=== PATIENT | male | born 1960 | race Asian ===

== ENCOUNTER 2021-08-18 09:33 | Emergency (ER) | payer MEDICAID, OTHER ==
[~2021-08-18] VITALS: Ht 152.4 cm; Wt 54.5 kg
[2021-08-18 09:35] VITALS: BP 101/63
[2021-08-18] MEDS ORDERED: diabetes med PO (09:38)
[2021-08-18] MEDS ORDERED: TACR0.5C21 PO (09:38)
[2021-08-18] MEDS ORDERED: APIX5TAB PO (09:38)
[2021-08-18] MEDS ORDERED: PHOSLOC PO (09:38)
[2021-08-18] MEDS ORDERED: METO-558 PO (09:38)
[2021-08-18] MEDS ORDERED: NIFE10 PO (09:38)
[2021-08-18] MEDS ORDERED: PRED-549 PO (09:38)
== END 2021-08-18 10:30 | disposition home or self-care (01) ==
LOC: EMS 09:37
DX: S01.01XD Laceration without foreign body of scalp, subsequent encounter (principal); Z48.02 Encounter for removal of sutures; Z79.899 Other long term (current) drug therapy; I10 Essential (primary) hypertension; E11.9 Type 2 diabetes mellitus without complications; X58.XXXD Exposure to other specified factors, subsequent encounter
CPT/HCPCS: 82962; 99282

== ENCOUNTER 2021-11-12 23:37 | Emergency (ER) | payer MEDICAID ==
[~2021-11-12] VITALS: Ht 147.3 cm; Wt 52.0 kg
[~2021-11-12 23:37] MED LIST: APIX5TAB PO; METO-558 PO; NIFE10CA50 PO; PHOSLOC PO; PRED-549 PO; TACR0.5C21 PO; diabetes med PO
[2021-11-13] MEDS ORDERED: GELATIN SPONGE,ABSORBABLE 12-7 MM TP ONE
[2021-11-13] MEDS ORDERED: SODIUM CHLORIDE 0.9% 250 ML IRRIG SOLUTION BOTTLE IRRIG ONE
[2021-11-13] MEDS ORDERED: CEPH-558 PO (02:57)
[2021-11-13 03:01] VITALS: BP 180/90
== END 2021-11-13 03:03 | disposition home or self-care (01) ==
LOC: EMS 23:37
DX: S61.217A Laceration without foreign body of left little finger without damage to nail, initial encounter (principal); E11.9 Type 2 diabetes mellitus without complications; I10 Essential (primary) hypertension; Z87.448 Personal history of other diseases of urinary system; Z94.0 Kidney transplant status; W27.8XXA Contact with other nonpowered hand tool, initial encounter; Y93.89 Activity, other specified; Y92.89 Other specified places as the place of occurrence of the external cause; Y99.8 Other external cause status
CPT/HCPCS: 99283

== ENCOUNTER 2023-03-28 04:32 | Inpatient (IN) | payer MEDICAID ==
[~2023-03-28] VITALS: Ht 147.3 cm; Wt 44.8 kg
[2023-03-28] VITALS (14 sets, daily range): BP systolic 128–187; BP diastolic 79–113; PULSE 52–73; RESP 18–24; TEMP 97.6–97.7; O2SAT 96–99
[~2023-03-28 04:32] MED LIST changes: +APIX2.5T PO; -APIX5TAB PO; +ATOR20TA65 PO; +CINA30 PO; -METO-558 PO; +METO25XL PO; -NIFE10CA50 PO; +PANT-31 PO; +SEVE800T38 PO; -TACR0.5C21 PO; +TACR1CAP12 PO
[2023-03-28 04:47] LABS: BASOPHILS % (AUTO) 0.9 % (0.0-2.0); EOSINOPHILS % (AUTO) 5.8 % (1.0-6.0); HEMATOCRIT 38.4 % (41-53); HEMOGLOBIN 12.6 g/dL (13.5-17.5); LYMPHOCYTES % (AUTO) 15.5 % (22.0-44.0); MEAN CORPUSCULAR HEMOGLOBIN 29.7 pg (26.0-34.0); MEAN CORPUSCULAR HGB CONC 32.9 G/dL (31.0-37.0); MEAN CORPUSCULAR VOLUME 90 fL (80-100); MONOCYTES # (AUTO) 0.3 K/uL (0.1-1.0); MONOCYTES % (AUTO) 5.2 % (2.0-9.0); NEUTROPHILS # (AUTO) 4.9 K/uL (1.8-7.7); NEUTROPHILS % (AUTO) 72.6 % (40.0-70.0); PLATELET COUNT (AUTO) 180 K/uL (150-450); RED BLOOD CELL COUNT(AUTO) 4.25 MIL/uL (4.50-5.90); RED CELL DISTRIBUTION WIDTH 18.4 % (11.5-14.5); WHITE BLOOD COUNT (AUTO) 6.7 K/uL (4.5-11.0)
[2023-03-28 04:56] LABS: CALCIUM, TOTAL 8.7 mg/dL (8.8-10.5); CREATININE 9.22 mg/dL (0.60-1.30); POTASSIUM 5.3 mmol/L (3.5-5.1)
[2023-03-28 05:04] LABS: ALBUMIN 3.5 g/dL (3.4-5.0); BILIRUBIN,TOTAL 0.4 mg/dL (0.1-1.0)
[2023-03-28 05:06] LABS: TROPONIN I-HIGH SENSITIVITY 112 ng/L (<76)
[2023-03-28] MEDS ORDERED: ONDANSETRON HCL 4 MG/2 ML VIAL IVP PRN ×2 (05:15→17:30)
[2023-03-28] MEDS ORDERED: 0.9% SODIUM CHLORIDE 10 ML SYRINGE IVP PRN (05:15)
[2023-03-28] MEDS ORDERED: ACETAMINOPHEN 325 MG TABLET PO PRN ×2 (05:15→17:30)
[2023-03-28 05:20] LABS: APPEARANCE,URINE HAZY (CLEAR); BILIRUBIN,URINE NEGATIVE (NEGATIVE); COLOR,URINE LIGHT YELLOW (YELLOW); GLUCOSE, URINE (UA) NEGATIVE (NEGATIVE); KETONES,URINE NEGATIVE (NEGATIVE); LEUKOCYTE ESTERASE ,URINE MODERATE (NEGATIVE); NITRATE,URINE NEGATIVE (NEGATIVE); OCCULT BLOOD,URINE SMALL (NEGATIVE); PH,URINE 8.5 (5.0-8.0); PROTEIN,URINE 300-600,SEE CONFIRM mg/dL (NEGATIVE); SPECIFIC GRAVITIY, URINE 1.009 (1.003-1.030); UROBILINOGEN,URINE <=1.0 mg/dL (<=1.0)
[2023-03-28 05:26] LABS: INFLUENZA A-RTPCR,COMBO NEGATIVE FOR FLU A (NEGATIVE); INFLUENZA B-RTPCR,COMBO NEGATIVE FOR FLU B (NEGATIVE); RESPIRATORY SYNCYTIAL VRS-PCR NEGATIVE (NEGATIVE); SARS COVID19 RTPCR, COMBO NEGATIVE (NEGATIVE)
[2023-03-28 05:26] LABS: SULFOSALICYLIC ACID,URINE 3+ (Negative)
[2023-03-28 05:27] LABS: BACTERIA,URINE Many /HPF (None Seen); RBC,URINE 0-2 /HPF (0-2); SQUAMOUS EPITHELIAL CELL,UR None Seen /LPF (None Seen)
[2023-03-28 05:30] LABS: TRIPLE PHOSPHATE CRYSTAL,UR Few /LPF (None Seen)
[2023-03-28] MEDS ORDERED: FUROSEMIDE 40 MG/4 ML VIAL IVP ONE (05:30)
[2023-03-28 12:16] LABS: GLUCOMETER DEV NAME(LOC) ER.6; GLUCOSE,POINT OF CARE 79 MG/DL (70-110)
[2023-03-28] MEDS ORDERED: SODIUM CHLORIDE 0.9% 2,000 ML ONE (14:21)
[2023-03-28] MEDS ORDERED: MAGNESIUM HYDROXIDE SUSPENSION 30 ML UDCUP PO PRN (17:30)
[2023-03-28] MEDS ORDERED: ALBUTEROL SULFATE 2.5 MG/0.5 ML NEB SOLUTION NEB PRN (17:30)
[2023-03-28] MEDS ORDERED: HYDROCODONE/ACETAMINOPHEN 5-325 MG TABLET PO PRN (17:30)
[2023-03-28] MEDS ORDERED: BISACODYL 10 MG RECTAL RECTAL SUPPOSITORY PR PRN (17:30)
[2023-03-28] MEDS ORDERED: ZOLPIDEM TARTRATE 5 MG TABLET PO PRN (17:30)
[2023-03-28] MEDS ORDERED: MORPHINE SULFATE 2 MG/ML SYRINGE IVP PRN (17:30)
[2023-03-28] MEDS ORDERED: IPRATROPIUM BROMIDE 0.5 MG/2.5 ML NEB SOLUTION NEB PRN (17:30)
[2023-03-28] MEDS ORDERED: METO50 PO (17:33)
[2023-03-28] MEDS ORDERED: LANT500T3 PO (17:33)
[2023-03-28] MEDS ORDERED: TRAZ-252 PO (17:33)
[2023-03-28] MEDS ORDERED: NIFE-78 PO (17:33)
[2023-03-28] MEDS ORDERED: SERT-438 PO (17:33)
[2023-03-28] MEDS ORDERED: OMEP20CA12 PO (17:33)
[2023-03-28] MEDS ORDERED: CefTRIAXone 1 GM/DEXTROSE 50 ML IV SCH (18:00)
[2023-03-28] MEDS: SEVELAMER CARBONATE 800 MG TABLET PO SCH (18:50)
[2023-03-28] MEDS ORDERED: PNEUMOCOCCAL VACCINE POLYVALENT 0.5 ML SYRINGE [PPSV23] IM. ONE (19:00)
[2023-03-28] MEDS: APIXABAN 2.5 MG TABLET PO SCH (20:16)
[2023-03-28] MEDS: TACROLIMUS 1 MG CAPSULE PO SCH (20:16)
[2023-03-28] MEDS: DOCUSATE SODIUM 100 MG CAPSULE PO SCH (20:23)
[2023-03-28 21:12] LABS: GLUCOMETER DEV NAME(LOC) 5N.2C; GLUCOSE,POINT OF CARE 142 MG/DL (70-110)
[2023-03-29] VITALS: BP 144/76; PULSE 59; RESP 20; TEMP 97.6
[2023-03-29] MEDS: HEPARIN SODIUM,PORCINE 5,000 UNITS/ML VIAL SQ SCH ×2 (00:37→08:00)
[2023-03-29 04:00] VITALS: BP 157/83; PULSE 61; RESP 24; TEMP 98.4
[2023-03-29 07:48] VITALS: BP 153/81; PULSE 63; RESP 22; TEMP 98
[2023-03-29] MEDS ORDERED: CINACALCET HCL 30 MG TABLET PO SCH (08:00)
[2023-03-29] MEDS: SEVELAMER CARBONATE 800 MG TABLET PO SCH (08:00)
[2023-03-29] MEDS ORDERED: CALCIUM ACETATE 667 MG CAPSULE PO SCH (08:00)
[2023-03-29] MEDS: DOCUSATE SODIUM 100 MG CAPSULE PO SCH (08:56)
[2023-03-29] MEDS: TACROLIMUS 1 MG CAPSULE PO SCH (08:56)
[2023-03-29] MEDS: APIXABAN 2.5 MG TABLET PO SCH (08:56)
[2023-03-29] MEDS ORDERED: ATORVASTATIN CALCIUM 20 MG TABLET PO SCH (09:00)
[2023-03-29] MEDS ORDERED: METOPROLOL SUCCINATE 25 MG ER TABLET PO SCH (09:00)
[2023-03-29] MEDS ORDERED: PredniSONE 5 MG TABLET PO SCH (09:00)
[2023-03-29] MEDS ORDERED: PANTOPRAZOLE SODIUM 40 MG DR TABLET PO SCH (09:00)
[2023-03-29] MEDS ORDERED: ATOR20TA PO (09:45)
[2023-03-29] MEDS ORDERED: PRED-549 PO (09:45)
[2023-03-29] MEDS ORDERED: APIX2.5T PO (09:46)
[2023-03-29] MEDS ORDERED: METO50 PO (09:46)
[2023-03-29] MEDS ORDERED: NIFE-141 PO (09:46)
[2023-03-29] MEDS ORDERED: CINA30 PO (09:46)
[2023-03-29] MEDS ORDERED: TACR1CAP12 PO (09:47)
[2023-03-29] MEDS ORDERED: FURO40 PO (09:47)
== END 2023-03-29 10:15 | disposition home or self-care (01) | DRG 133 ==
LOC: EMS 04:32 → 5S 05:16
PROVIDERS: ADMIT Hospitalist; ATTEND Hospitalist
PROC: 5A09357 Assistance with Respiratory Ventilation, Less than 24 Consecutive Hours, Continuous Positive Airway Pressure (ICD-10-PCS; principal; 2023-03-28)
PROC: 5A1D70Z Performance of Urinary Filtration, Intermittent, Less than 6 Hours Per Day (ICD-10-PCS; 2023-03-28)
DX: J96.00 Acute respiratory failure, unspecified whether with hypoxia or hypercapnia (principal); I13.2 Hypertensive heart and chronic kidney disease with heart failure and with stage 5 chronic kidney disease, or end stage renal disease; E11.22 Type 2 diabetes mellitus with diabetic chronic kidney disease; E78.00 Pure hypercholesterolemia, unspecified; I25.10 Atherosclerotic heart disease of native coronary artery without angina pectoris; Z20.822 Contact with and (suspected) exposure to COVID-19; K21.9 Gastro-esophageal reflux disease without esophagitis; I49.9 Cardiac arrhythmia, unspecified; I16.1 Hypertensive emergency; Z79.899 Other long term (current) drug therapy; N39.0 Urinary tract infection, site not specified; Z82.49 Family history of ischemic heart disease and other diseases of the circulatory system; Z83.3 Family history of diabetes mellitus; Z91.041 Radiographic dye allergy status; Q05.9 Spina bifida, unspecified; I50.20 Unspecified systolic (congestive) heart failure
CPT/HCPCS: 0241U; 71045; 80053; 81001; 81002; 82550; 82962; 83880; 84484; 85025; 87086; 87186; 87340; 90935; 93005; 94660; 99291; G0378; J0696; J1644; J1940; J7030; J7507; 36415-L1; 36415-TC